=== PATIENT | male | born 1940 | race Caucasian/White ===

== ENCOUNTER 2017-03-11 07:07 | Day surgery (SDC) | payer OTHER, BC ==
[2017-03-08 14:04] VITALS: BMI 31.1
[2017-03-11] MEDS ORDERED: LIDOCAINE HCL/PF 2% SDV 5ML VIAL ONE (07:28)
[2017-03-11] MEDS ORDERED: PROPOFOL 20 ML ONE ×2 (07:28)
[2017-03-11 09:16] VITALS: TEMP 98.2
[2017-03-11 09:36] VITALS: BP 120/64; PULSE 64
--- NOTE | 2017-03-17 11:19 | PATH ---
Surgical Pathology Report Patient Name: ROSHAN FLANNERY [facility]. Rec. #: [id number] /Age/Gender: 1940 (Age: 76) / M Account: [id number] Location: [facility]-ENDOSCOPY Taken: 03/11/2017 Received: 03/11/2017 Reported: 03/12/2017 Physicians: Gilbert Myers M.D. Specimen(s) Received A: POLYP RIGHT COLON B: POLYP LEFT COLON C: SIGMOID COLON D: DISTAL SIGMOID COLON Clinical History History of polyps Diverticulosis, polyp right colon, polyp left colon, polyp sigmoid colon Final Diagnosis A. COLON, RIGHT, POLYP, POLYPECTOMY: FRAGMENTS OF SESSILE SERRATED ADENOMA. B. COLON, LEFT, POLYP, POLYPECTOMY: SERRATED ADENOMA. C. COLON, SIGMOID, POLYP, POLYPECTOMY: FRAGMENTS OF TUBULAR ADENOMA. D. COLON, DISTAL SIGMOID, POLYP, POLYPECTOMY: FRAGMENTS OF TUBULAR ADENOMA. Electronically Signed Khoa Pedroza M.D. Gross Description A. Received in formalin labeled "polyp right colon" is a 1.2 x 1.0 x 0.3 cm aggregate of multiple rodrigez, irregular to polypoid portions of soft tissue. The specimen is entirely submitted in one cassette. B. Received in formalin, labeled "polyp left colon" is a rodrigez, irregular portion of soft tissue measuring 0.2 cm. in greatest dimension. The specimen is submitted in toto in one cassette. C. Received in formalin, labeled "polyp sigmoid colon" is a rodrigez, irregular portion of soft tissue measuring 0.3 cm. in greatest dimension. The specimen is submitted in toto in one cassette. D. Received in formalin, labeled "polyp distal sigmoid colon" are 2 rodrigez, irregular portions of soft tissue averaging 0.2 cm. in greatest dimension. The specimens are submitted in toto in one cassette. DL03/11/2017 saudi/03/11/2017
== END 2017-03-11 09:37 | disposition home or self-care (01) ==
LOC: FASU-ENDO 07:07
PROVIDERS: ATTEND Internal Medicine Gastroenterology
PROC: 0DBN8ZX Excision of Sigmoid Colon, Via Natural or Artificial Opening Endoscopic, Diagnostic (ICD-10-PCS; 2017-03-11)
PROC: 3E0H8GC Introduction of Other Therapeutic Substance into Lower GI, Via Natural or Artificial Opening Endoscopic (ICD-10-PCS; 2017-03-11)
PROC: 0DBK8ZX Excision of Ascending Colon, Via Natural or Artificial Opening Endoscopic, Diagnostic (ICD-10-PCS; principal; 2017-03-11 08:24)
PROC: 0DBM8ZX Excision of Descending Colon, Via Natural or Artificial Opening Endoscopic, Diagnostic (ICD-10-PCS; 2017-03-11 08:24)
DX: Z86.010 Personal history of colon polyps (principal); D12.2 Benign neoplasm of ascending colon; D12.4 Benign neoplasm of descending colon; D12.5 Benign neoplasm of sigmoid colon; K57.30 Diverticulosis of large intestine without perforation or abscess without bleeding
CPT/HCPCS: 88305-TC

== ENCOUNTER 2018-02-28 07:24 | Day surgery (SDC) | payer OTHER, BC ==
[2018-02-23 12:08] VITALS: BMI 32.6
[2018-02-28] MEDS ORDERED: PROPOFOL 20 ML ONE ×2 (07:29)
[2018-02-28] MEDS ORDERED: LIDOCAINE HCL/PF 2% SDV 5ML VIAL ONE (07:29)
[2018-02-28 09:32] VITALS: TEMP 98
[2018-02-28 10:09] VITALS: BP 138/66; PULSE 79
--- NOTE | 2018-03-01 16:00 | PATH ---
Surgical Pathology Report Patient Name: ROSHAN FLANNERY [facility]. Rec. #: [id number] /Age/Gender: 1940 (Age: 77) / M Account: [id number] Location: [facility]-ENDOSCOPY Taken: 02/28/2018 Received: 02/28/2018 Reported: 03/01/2018 Physicians: Gilbert Myers M.D. Specimen(s) Received A: MID RIGHT COLON B: BX SIGMOID Clinical History Rule out colon cancer Postoperative diagnosis: Polyps Final Diagnosis A. MID COLON, RIGHT, BIOPSY: TUBULAR ADENOMA. B. SIGMOID COLON, BIOPSY: TUBULAR ADENOMA. Electronically Signed Dasha Espinosa M.D. Gross Description A. Received in formalin, labeled "mid right colon" is a rodrigez, irregular portion of soft tissue measuring 0.4 cm. in greatest dimension. The specimen is submitted in toto in one cassette. B. Received in formalin, labeled "sigmoid" is a rodrigez, irregular portion of soft tissue measuring 0.5 cm. in greatest dimension. The specimen is submitted in toto in one cassette. 02/28/2018 saudi02/28/2018
== END 2018-02-28 10:00 | disposition home or self-care (01) ==
LOC: FASU-ENDO 07:24
PROVIDERS: ATTEND Internal Medicine Gastroenterology
PROC: 0DBK8ZX Excision of Ascending Colon, Via Natural or Artificial Opening Endoscopic, Diagnostic (ICD-10-PCS; principal; 2018-02-28 08:57)
PROC: 0DBN8ZX Excision of Sigmoid Colon, Via Natural or Artificial Opening Endoscopic, Diagnostic (ICD-10-PCS; 2018-02-28 08:57)
DX: Z86.010 Personal history of colon polyps (principal); D12.2 Benign neoplasm of ascending colon; D12.5 Benign neoplasm of sigmoid colon; K57.30 Diverticulosis of large intestine without perforation or abscess without bleeding
CPT/HCPCS: 88305-TC